=== PATIENT | female | born 1950 | race Caucasian/White ===

== ENCOUNTER 2023-04-18 10:26 | Outpatient (REF) | payer MEDICARE, SELFPAY ==
--- NOTE | ~2023-04-18 | XR_ITS ---
EXAMINATION: XR SHOULDER, LEFT CLINICAL INFORMATION: Pain. COMPARISON: None available. TECHNIQUE: AP external rotation, Grashey, scapular Y, and axillary views of the left shoulder. FINDINGS: Bony alignment and mineralization are normal. There is marked degenerative change of the right glenohumeral joint, with joint space narrowing and peripheral osteophyte formation. The acromioclavicular and coracoclavicular intervals are normal. No fracture or dislocation is seen. There is a distal acromial undersurface osteophyte, and there is cortical irregularity of the greater tuberosity of the proximal left humerus. No soft tissue calcification or foreign body is seen. There is no left pneumothorax. XR/XR shoulder LT min 2V IMPRESSION: 1. There is marked degenerative change of the left glenohumeral joint. 2. Findings are consistent with left rotator cuff impingement.
== END 2023-04-18 10:27 | disposition home or self-care (01) ==
LOC: HO.HOSX 10:26
PROVIDERS: Visit Provider Orthopaedic Surgery
DX: M25.512 Pain in left shoulder (principal)
CPT/HCPCS: 20610; 73030; 99202; J1020

== ENCOUNTER 2023-04-18 13:47 | Outpatient (AMB) | payer MEDICARE, SELFPAY ==
--- NOTE | 2023-04-18 13:49 | A.OFFVIS_ITS ---
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 Intake Note: Brinda is a 72 year old -- handed female who presents as a new patient with Left shoulder pain. Patient reports her pain has been going on for about 5 years and is a 2 on the 1-10 pain scale. She reports using meloxicam and had injections which helps. She denies injury . She has has had surgery on her left shoulder in July of 2021. She has done physical therapy exercises which aggravated her pain. She has also tried Tylenol and anti-inflammatory medicines which gave her minimal relief. She would like to hold off on surgery for as long as possible. Allergies erythromycin base Allergy (Intermediate, Verified 04/18/23 14:20) Headache Medication List - Last Reconciled 04/19/23 by Zachary Fatima MD amlodipine 10 mg PO DAILY aspirin (Adult Low Dose Aspirin) 81 mg PO DAILY ezetimibe 10 mg PO DAILY gabapentin 300 mg PO TID insulin aspart U-100 (Novolog FlexPen U-100 Insulin aspart) subcut insulin glargine (Lantus Solostar U-100 Insulin) units subcut latanoprost 0.005% drps ophthalmic (eye) levothyroxine (Synthroid) 75 mcg PO DAILY lisinopril 40 mg PO DAILY meloxicam 15 mg PO DAILY metformin 1,000 mg PO BID metoprolol succinate ER 100 mg PO DAILY [facility] Surgical History History of right knee surgery (~2018) Hx of left knee surgery (~2015) History of shoulder surgery (~07/2021) Physical Exam Vital Signs: BMI result Body Mass Index 24.3 Const Other: Well-nourished well-developed very friendly female awake alert and oriented x3 in no acute distress Extrem Other: Bilateral upper extremity examination shows good capillary refill, no skin lesions noted, normal sensation light touch Left shoulder examination shows decreased active and passive range of motion when compared to her right shoulder, crepitus with range of motion, no instability Office Procedures Joint Injection/Drain Joint Injection/Drain Primary Site: left shoulder Prep: site was prepped using aseptic technique Injected: 40 mg of, DepoMedrol and 1% plain lidocaine Procedure: The patient tolerated the procedure well Coding 35389 - Large joint Procedure code (CPT) selection complete Results Reviewed Results Reviewed: X-rays of the patient's left shoulder show severe glenohumeral joint degenerative changes, no acute bony abnormalities Assessment & Plan Assessment & Plan (1) Left shoulder pain: Code(s): M25.512 - Pain in left shoulder Plan Ms. Jeffrey presents with left shoulder pain due to glenohumeral joint arthritis. I had a lengthy discussion with the patient regarding the treatment options. She wishes to hold off on total shoulder replacement surgery for as long as possible. I agree with this plan. The risks and benefits of a left shoulder cortisone injection were discussed at length with the patient. The patient wished to proceed with the injection. She tolerated the injection well. She will continue with her home stretching program. She will follow up with me on an as-needed basis should her symptoms not plateau at an unacceptable level over the next few months. Feel free to call me at any time should questions regarding her orthopedic management arise. I spent 22 minutes in reviewing the patient's records and imaging studies, seeing the patient and documenting in the medical record. Orders: Orders XR shoulder LT min 2V 04/18/23 M25.512 - Pain in left shoulder AMB Joint Injection/Aspiration 04/18/23 M25.512 - Pain in left shoulder Coding Level of Care Code New Pt Level 2 (44014) Diagnoses Left shoulder pain M25.512 CPT Codes Coding - 30644 Large joint: 76870 - Large joint ([id number])
[2023-04-18 14:13] VITALS: BMI 24.3
== END 2023-04-18 14:58 | disposition home or self-care (01) ==
PROVIDERS: PCP Internal Medicine; Visit Provider Orthopaedic Surgery
DX: M25.512 Pain in left shoulder (principal)
CPT/HCPCS: 20610; 99204

== ENCOUNTER 2023-04-26 09:53 | Outpatient (REF) | payer MEDICARE, SELFPAY ==
--- NOTE | ~2023-04-26 | XR_ITS ---
EXAMINATION: XR HIP WITH AP PELVIS, RIGHT CLINICAL INFORMATION: Right hip pain. COMPARISON: None TECHNIQUE: AP view of the pelvis and a frog-leg lateral view of the right hip were obtained. FINDINGS: Mild osteoarthritis is present in both hips, characterized by marginal osteophytes and mild joint space narrowing. Mild osteoarthritis is also noted in the SI joints and pubic symphysis. There is enthesopathic spurring at the anterior superior iliac spines and greater trochanters bilaterally. Severe multilevel degenerative spondylosis is noted in the lumbar spine. Bones are osteopenic. Calcific atherosclerosis is present of the abdominal aorta, iliac, and femoral arteries. XR/XR hip RT min 2V IMPRESSION: 1. Mild osteoarthritis in the hips and SI joints. No acute osseous findings. 2. Marked multilevel degenerative spondylosis in the lumbar spine.
== END 2023-04-26 09:54 | disposition home or self-care (01) ==
LOC: HO.HOSX 09:53
PROVIDERS: Visit Provider Orthopaedic Surgery
DX: M25.551 Pain in right hip (principal); M54.50 Low back pain, unspecified; Z79.899 Other long term (current) drug therapy
CPT/HCPCS: 73502; 99212

== ENCOUNTER 2023-04-26 10:29 | Outpatient (AMB) | payer MEDICARE, SELFPAY ==
[2023-04-26 10:35] VITALS: BMI 24.3
--- NOTE | 2023-04-26 10:35 | MHC.OFFVIS ---
Intake Vital Signs 04/26/23 10:35 Height 5 ft 7 in Weight 155 lb BMI 24.3 Intake Visit Reasons: New prob- Right hip pain/ LVM Intake Note: Brinda is a 72 year old female who presents with Right hip pain. Patient reports her pain has been going on for about six months and is a 2 on the 1-10 scale. She reports her pain is worse when she walks or is laying down. She denies injury and surgery. She has had cortisone injections with little relief. The patient states that she recently started seeing a chiropractor again. She has gotten mild relief from the chiropractic treatments. She does walk with a cane. The patient also reports intermittent back pain which radiates into her right thigh. She did undergo low back surgery by Dr. Hernandez several years ago. Allergies erythromycin base Allergy (Intermediate, Verified 04/26/23 10:48) Headache Medication List - Last Reconciled 04/26/23 by Zachary Fatima MD amlodipine 10 mg PO DAILY aspirin (Adult Low Dose Aspirin) 81 mg PO DAILY ezetimibe 10 mg PO DAILY gabapentin 300 mg PO TID insulin aspart U-100 (Novolog FlexPen U-100 Insulin aspart) subcut insulin glargine (Lantus Solostar U-100 Insulin) units subcut latanoprost 0.005% drps ophthalmic (eye) levothyroxine (Synthroid) 75 mcg PO DAILY lisinopril 40 mg PO DAILY meloxicam 15 mg PO DAILY metformin 1,000 mg PO BID metoprolol succinate ER 100 mg PO DAILY [facility] Surgical History History of right knee surgery (~2018) Hx of left knee surgery (~2016) History of shoulder surgery (~07/2021) Physical Exam Vital Signs: BMI result Body Mass Index 24.3 Const Other: Well-nourished well-developed very friendly female awake alert and oriented x3 in no acute distress Extrem Other: Bilateral lower extremity examination shows good capillary refill, no skin lesions noted, normal sensation light touch Right hip examination shows full range of motion when compared to her left hip, minimal tenderness over her bursa, positive straight leg raise test on the right at 70 degrees Assessment & Plan Assessment & Plan (1) Right hip pain: Code(s): M25.551 - Pain in right hip (2) Low back pain: Code(s): M54.50 - Low back pain, unspecified Plan Ms. Jeffrey presents with intermittent right hip discomfort most likely due to greater trochanteric bursitis as well as low back pain which radiates into her right leg possibly due to lumbar stenosis. I had a lengthy discussion with the patient regarding the treatment options. At this point the patient's symptoms seem to be improving with the chiropractic treatments. We will hold off on a cortisone injection or an MRI of her back. Activity modifications were discussed at length with the patient. She will follow up with me on an as-needed basis should her symptoms not plateau at an unacceptable level over the next few months. Feel free to call me at any time should questions regarding her orthopedic management arise. I spent 22 minutes in reviewing the patient's records and imaging studies, seeing the patient and documenting in the medical record. Orders: Orders XR hip RT min 2V Today M25.551 - Pain in right hip Coding Level of Care Code Est Pt Level 2 (19771) Diagnoses Right hip pain M25.551 Low back pain M54.50
== END 2023-04-26 11:07 | disposition home or self-care (01) ==
PROVIDERS: PCP Internal Medicine; Visit Provider Orthopaedic Surgery
DX: M25.551 Pain in right hip (principal); M54.50 Low back pain, unspecified
CPT/HCPCS: 99213

== ENCOUNTER 2024-06-16 07:42 | Emergency (ER) | payer MEDICARE, SELFPAY ==
[2024-06-16] VITALS (10 sets, daily range): BP systolic 144–200; BP diastolic 79–100; PULSE 90–111; RESP 16–20; TEMP 36.6–37; O2SAT 94–99; BMI 23.4
--- NOTE | ~2024-06-16 | CT_ITS ---
CLINICAL HISTORY: RLQ pain CT abdomen and pelvis with contrast Comparison: CT - CT ABDOMEN PELVIS W IV CON - 06/16/24 09:30 EDT Findings: The lung bases are clear. Gallbladder is within normal limits. Bilateral adrenal thickening is present. Solid organs otherwise are within normal limits. No bowel obstruction, pneumoperitoneum, or pneumatosis. Moderate hiatal hernia. Appendix is normal. Right ovarian cyst measuring 37 mm is present. The bones are intact. IMPRESSION: 1. No acute process. 2. Right ovarian cyst, Which could indicate malignancy. Gynecologic consultation recommended. 3. Hiatal hernia. This document has been electronically signed by: Sha Cui MD on 06/16/2024 14:51:01
[2024-06-16 07:59] LABS: MANUAL DIFF FLAG NO
--- OUTSIDE RECORDS SUMMARY | 2024-06-16 07:59 | XMS_ITS | Clinical Summary ---
Author Organization [facility] Address [address] [place] [address] Care Team Providers Care Textile Machine Mechanic Name Role Phone Micah Vasques MD Primary Care Provider [phone] Allergies Active Allergy Reactions Criticality Noted Date Comments Duloxetine Nausea And Vomiting 07/17/2017 Erythromycin 11/09/2016 Lactose Intolerance (Gi) 11/09/2016 Medications Medication Sig Dispensed Refills Start Date End Date Status cyproheptadine (PERIACTIN) 4 MG tablet TK 1 T PO TID 0 09/23/2016 Active ezetimibe (ZETIA) tablet 10 mg TK 1 T PO QD 1 10/26/2016 Active B-D INS SYR ULTRAFINE .3CC/30G 30G X 1/2 0.3 ML MISC USE TID FOR DIABETES WITH INSULIN USE 11 09/26/2016 Active amLODIPine-benazep ril (LOTREL 5-20) 5-20 MG per capsule Take 1 capsule by mouth daily. 0 Active aspirin 81 MG chewable tablet Chew 81 mg by mouth daily. 0 Active LISINOPRIL PO Take by mouth. 0 Active metFORMIN (GLUMETZA) 1000 MG (MOD) 24 hr tablet Take 1,000 mg by mouth every morning with breakfast. 0 Active levothyroxine (SYNTHROID, LEVOXYL) tablet 75 mcg Take 75 mcg by mouth every morning on an empty stomach. 0 Active Insulin Zinc Human (HUMULIN L SC) Inject under the skin. 0 Active TOPROL XL 100 MG 24 hr tablet 0 11/08/2017 Active amLODIPine (NORVASC) tablet 5 mg 0 01/20/2018 Active gabapentin (NEURONTIN) 100 MG capsule 300 mg 3 (three) times a day. 0 11/21/2017 Active clindamycin (CLEOCIN) 300 MG capsule Take 2 capsules 1 hour prior to dental appointment 10 capsule 3 02/08/2018 Active DULoxetine (CYMBALTA) DR capsule 30 mg duloxetine 30 mg capsule,delayed release 0 Active ipratropium (ATROVENT) 0.03 % nasal spray ipratropium bromide 0.03 % nasal spray 0 Active ipratropium-albute rol (DUO-NEB) 0.5-2.5 mg/mL nebulizer 3 mL. 0 Active albuterol (PROAIR HFA) 108 (90 Base) MCG/ACT inhaler ProAir HFA 90 mcg/actuation aerosol inhaler 0 Active levothyroxine (SYNTHROID, LEVOXYL) tablet 75 mcg Synthroid 75 mcg tablet 0 Active HYDROcodone-acetam inophen (NORCO) 5-325 MG per tablet 1-2 tabs p.o. every 6 hours as needed for pain. May fill for lesser quantity. 40 tablet 0 03/01/2019 Active Additional Information Patient not taking.Reason: Other, Reported on 10/15/2020 HYDROcodone-acetam inophen (NORCO) 5-325 MG per tablet Take 1 to 2 tabs every 8 hours as needed for pain 45 tablet 0 04/12/2019 Active Additional Information Patient not taking.Reason: Other, Reported on 10/15/2020 hydroCHLOROthiazid e (HYDRODIURIL) tablet 25 mg 0 08/14/2020 Active tiZANidine (ZANAFLEX) 4 MG tablet 1 TABLET BY MOUTH EVERY 8 HOURS,X14 DAYS,INSTR NEEDED FOR SPASM 0 06/19/2020 Active HumaLOG KWIKPEN 100 UNIT/ML SOPN Inject 14 Units under the skin 2 (two) times a day. 0 09/11/2020 Active HumuLIN N KWIKPEN 100 UNIT/ML injection Inject 8 Units under the skin 3 (three) times a day before meals. 0 09/27/2020 Active Aspirin Buf,CaCarb-MgCarb- MgO, 81 MG TABS Take 81 mg by mouth. 0 05/20/2005 Active amoxicillin (AMOXIL) 500 MG tablet Take 4 tabs 1 hour prior to dental appointment 20 tablet 3 10/28/2021 Active lidocaine (LIDODERM) 5 % Place 1 patch onto the skin daily. Remove & Discard patch within 12 hours or as directed by MD 30 patch 0 09/11/2023 Active meloxicam (MOBIC) 15 MG tablet Take 1 tablet (15 mg total) by mouth daily as needed. for pain 90 tablet 0 11/14/2023 Active Active Problems Problem Noted Date Diagnosed Date Arthritis of left shoulder region 12/11/2018 Arthritis of left acromioclavicular joint 2018 Greater trochanteric bursitis of left hip 2018 Effusion of right knee joint 08/24/2018 Arthritis of knee, right 11/02/2017 Family History Medical History Relation Name Comments Heart disease Father Stroke Father Arthritis Mother Cancer Mother Diabetes Mother Hypertension Mother Relation Name Status Comments Father Mother Social History Tobacco Use Types Packs/Day Years Used Date Smoking Tobacco: Former Smokeless Tobacco: Never Alcohol Use Standard Drinks/Week Comments No 0 (1 standard drink = 0.6 oz pur e alcohol) Sex and Gender Information Value Date Recorded Sex Assigned at Not on file Gender Identity Not on file Sexual Orientation Not on file Job Start Date Occupation Industry Not on file Not on file Not on file Last Filed Vital Signs Vital Sign Reading Time Taken Comments Blood Pressure 154/76 09/08/2022 12:54 PM EDT Pulse 76 09/08/2022 12:54 PM EDT Temperature 36.9 ??C (98.4 ??F) 09/08/2022 12:54 PM E DT Respiratory Rate - - Oxygen Saturation 98% 09/08/2022 12:54 PM EDT Inhaled Oxygen Concentration - - Weight 70.3 kg (155 lb) 10/15/2020 8:53 AM EDT Height 172.7 cm (5' 8 ) 10/15/2020 8:53 AM EDT Body Mass Index 23.57 10/15/2020 8:53 AM EDT Plan of Treatment Health Maintenance Due Date Last Done Comments Hepatitis C Screening 1950 Depression Screening 1961 Preventative Health Evaluation 06/16/1967 Colon Cancer Screening (Colonoscopy) 1994 Breast Cancer Screening (Mammogram) 06/16/1999 Shingrix-Zoster Vaccine (1 of 2) 06/16/1999 Fall Risk Assessment 2014 Osteoporosis Screening (DEXA Scan) 2014 Pneumococcal Vaccine (3 of 3 - PPSV23 or PCV20) 01/17/2020 01/16/2015, 03/13/1995 COVID-19 Vaccine ( season) 2023 12/30/2020, 06/04/2020, 05/14/2020 Influenza Vaccine (#1) 2023 , 12/26/2017, 12/30/2016, Additional history exists RSV Adult > 60+ Yrs or (1 - 1-dose 75+ series) 2024 DTap / Tdap / Td (3 - Td or Tdap) 01/04/2028 01/03/2018, 04/06/2007 Hepatitis B Vaccines Aged Out No long er eligible based on patient's age to complete this topic RSV Ped < 20 months Aged Out No longe r eligible based on patient's age to complete this topic Care Teams Textile Machine Mechanic Relationship Specialty Start Date End Date Micah Vasques MD [address] [place] [address], [address] [place] [address] PCP - General High School Tutor 10/21/16
--- OUTSIDE RECORDS SUMMARY | 2024-06-16 07:59 | XMS_ITS | Clinical Summary ---
Author Organization [facility] Address [address] [place] [address] Care Team Providers Care Staff Rn Name Role Phone Micah Vasques MD Primary Care Provider [phone] Surgical History Surgery Date Site/Laterality Comments KNEE SURGERY PROCEDURE:KNEE SURGERY TONSILLECTOMY ADENOIDECTOMY, BILATERAL MYRINGOTOMY AND TUBES PROCEDURE:TONSILECTOMY, ADENOIDECTOMY, BILATERAL MYRINGOTOMY AND TUBES WRIST SURGERY PROCEDURE:WRIST SURGERY JOINT REPLACEMENT Bilateral PROCEDURE:JOINT REPLACEMENT;COMMENT:knee EYE SURGERY PROCEDURE:EYE SURGERY Medical History Medical History Date Comments Hypertension DX:Hypertension Arthritis DX:Arthritis Diabetes mellitus ([facility]) DX:D iabetes mellitus ([facility]) Family History Medical History Relation Name Comments Heart disease Father Stroke Father Arthritis Mother Cancer Mother Diabetes Mother Hypertension Mother Relation Name Status Comments Father Mother Social History Tobacco Use Types Packs/Day Years Used Date Smoking Tobacco: Former Smokeless Tobacco: Never Alcohol Use Standard Drinks/Week Comments No 0 (1 standard drink = 0.6 oz pur e alcohol) Comments Unknown Sex and Gender Information Value Date Recorded Sex Assigned at Not on file Legal Sex Female 1:10 PM EDT Gender Identity Not on file Sexual Orientation Not on file Obstetrics History Last Filed Vital Signs Vital Sign Reading Time Taken Comments Blood Pressure 154/76 09/08/2022 12:54 PM EDT Pulse 76 09/08/2022 12:54 PM EDT Temperature - - Respiratory Rate - - Oxygen Saturation - - Inhaled Oxygen Concentration - - Weight - - Height - - Body Mass Index - - Plan of Treatment Health Maintenance Due Date Last Done Comments Breast Cancer Screening 1950 DTaP,Tdap,and Td Vaccines (1 - Tdap) 1968 Pneumococcal Vaccine: 50+ Ye ars (1 of 1 - PCV) 06/16/1999 Zoster Vaccines (1 of 2) 06/16/1999 Colorectal Cancer Screening: Colonoscopy 11/16/2020 Depression Screening 11/16/2020 Falls Risk Assessment 11/16/2020 Hepatitis C Screening 11/16/2020 Osteoporosis Screening (Bone Density Screening) 11/16/2020 Social Influencers of Health Screening 11/16/2020 COVID-19 Vaccine (1 - 2023-2 5 season) 2023 Influenza Vaccine (#1) 2023 RSV Immunization Adult Patie nts (1 - 1-dose 75+ series) 2024 HIB Vaccines Aged Out No longer eligi ble based on patient's age to complete this topic HPV Vaccines Aged Out No longer eligi ble based on patient's age to complete this topic Hepatitis A Vaccines Aged Out No long er eligible based on patient's age to complete this topic Hepatitis B Vaccines Aged Out No long er eligible based on patient's age to complete this topic IPV Vaccines Aged Out No longer eligi ble based on patient's age to complete this topic MMR Vaccines Aged Out No longer eligi ble based on patient's age to complete this topic Meningococcal ACWY Vaccine Aged Out N o longer eligible based on patient's age to complete this topic Meningococcal B Vacine Aged Out No lo nger eligible based on patient's age to complete this topic RSV Immunization Patients Un rohini 20 months Aged Out No longer eligible b ased on patient's age to complete this topic Varicella Vaccines Aged Out No longer eligible based on patient's age to complete this topic Advance Directives Documents on File Type Date Recorded Patient Insurance Adviser Expl anation Health Care Decision (hx) 01/26/2016 AD [place] DIRECTIVE Health Care Decision (hx) 01/26/2016 AD [place] DIRECTIVE Care Teams Staff Rn Relationship Specialty Start Date End Date Micah Vasques MD [address] [place] [address] PCP - General Internal Medicine 07/15/21
--- OUTSIDE RECORDS SUMMARY | 2024-06-16 07:59 | XMS_ITS ---
Author Name [facility] Unknown Encounters Encounter Type Encounter Reason Primary Diagnosis Location Date Ambulatory [facility] 06/30/2022 Care Team Organization Name Specialty Phone Email Start Date End Da te [facility] PIERRE GRACIA Primary Care 02/10/202210/29
[2024-06-16 08:05] LABS: Basophils Percent Auto 0.4 % (0-2); Eosinophils Absolute Auto 0.1 X10*3/uL (0.0-0.4); Eosinophils Percent Auto 1.2 % (0-4); Hematocrit 37.6 % (37.0-47.0); Hemoglobin 13.7 g/dl (12.0-16.0); Imm Gran Abs Auto 0.03 X10*3/uL (0.00-0.03); Imm Gran Pct Auto 0.4 % (0.0-0.4); Lymphocytes Absolute Auto 1.7 X10*3/uL (1.2-4.9); Lymphocytes Percent Auto 19.9 % (20-40); Mean Corpuscular HGB Conc 36.4 g/dl (31.0-35.0); Mean Corpuscular Hemoglobin 31.2 pg (27.0-33.0); Mean Corpuscular Volume 85.6 fL (80.0-98.0); Mean Platelet Volume 8.9 fL (9.4-12.3); Monocytes Absolute Auto 0.8 X10*3/uL (0.1-1.2); Monocytes Percent Auto 9.3 % (2-11); Neutrophils Absolute Auto 5.9 x10*3/uL (2.0-8.3); Neutrophils Percent Auto 68.8 % (45-73); Platelet Count 436 X10*3/uL (160-400); Red Blood Count 4.39 X10*6/uL (4.20-5.50); Red Cell Distribution Width 12.9 % (11.0-16.0); White Blood Count 8.5 X10*3/uL (4.8-10.8)
[2024-06-16 08:14] LABS: Anion Gap 16 (12-20); Blood Urea Nitrogen 26 mg/dL (9-16); Calcium 9.9 mg/dL (8.4-10.2); Carbon Dioxide 25 mmol/L (22-29); Chloride 91 mmol/L (96-108); Creatinine Clr Calc Pharmacy 47.3; Estimated Glomerular Filt Rate 57; Glucose Random 199 mg/dL (60-115); Potassium 4.2 mmol/L (3.3-5.1); Sodium 128 mmol/L (135-145)
--- NOTE | 2024-06-16 09:02 | ED.NAVMDI ---
HPI - Nausea/Vomiting/Diarrhea General Chief complaint: Nausea/Vomiting/Diarrhea Stated complaint: flu like symptoms Time Seen by Provider: 06/16/24 08:49 Source: patient and family Mode of arrival: ambulatory Limitations: no limitations History of Present Illness ED Provider: DR. Ackerman HPI Narrative: 74-year-old female walked into the emergency department for evaluation of intermittent lower abdominal pain and persistent vomiting for the past 4 days, pain is intermittent feel like something twisting in her belly, persistent vomiting patient unable to keep solids or fluids, no sick contacts, no recent travel, no recent use of antibiotic, no diarrhea, passing flatus, had bowel movement 2 days ago, no history of intra-abdominal surgery. Related Data Home Medications ?Medication ?Instructions ?Recorded ?Confirmed amlodipine 10 mg tablet 10 mg PO DAILY 04/18/23 04/26/23 aspirin 81 mg tablet,delayed 81 mg PO DAILY 04/18/23 04/26/23 release (Adult Low Dose Aspirin) ezetimibe 10 mg tablet 10 mg PO DAILY 04/18/23 04/26/23 gabapentin 300 mg capsule 300 mg PO TID 04/18/23 04/26/23 insulin aspart U-100 100 unit/mL subcut 04/18/23 04/26/23 (3 mL) subcutaneous pen (Novolog FlexPen U-100 Insulin aspart) insulin glargine 100 unit/mL (3 unit subcut 04/18/23 04/26/23 mL) subcutaneous pen (Lantus Solostar U-100 Insulin) latanoprost 0.005 % eye drops drp ophthalmic (eye) 04/18/23 04/26/23 levothyroxine 75 mcg tablet 75 mcg PO DAILY 04/18/23 04/26/23 (Synthroid) lisinopril 40 mg tablet 40 mg PO DAILY 04/18/23 04/26/23 meloxicam 15 mg tablet 15 mg PO DAILY 04/18/23 04/26/23 metformin 1,000 mg tablet 1,000 mg PO BID 04/18/23 04/26/23 metoprolol succinate 100 mg 100 mg PO DAILY 04/18/23 04/26/23 tablet,extended release 24 hr Allergies Allergy/AdvReac Type Severity Reaction Status Date / Time erythromycin base Allergy Intermediate Headache Verified 06/16/24 07:48 Review of Systems Review of Systems: All other systems are reviewed and are negative Constitutional: Reports as per HPI and Reports no additional constitutional complaints Eyes: Reports as per HPI and Reports no additional eye complaints Reports system reviewed and no additional complaints, except as documented Cardiovascular: Reports as per HPI and Reports no additional cardiovascular complaints Respiratory: Reports as per HPI and Reports no additional respiratory complaints Gastrointestinal: Reports as per HPI and Reports no additional gastrointestinal complaints Genitourinary: Reports no additional female genitourinary complaints Musculoskeletal: Reports no additional musculoskeletal complaints Skin/Breast: Reports system reviewed and no additional complaints, except as docu Psychiatric: Reports no additional psychiatric complaints Endocrine: Reports no additional endocrine complaints Hematologic/Lymphatic: Reports no additional hematologic/lymphatic complaints Allergic/Immunologic: Reports no additional allergic/immunologic complaints Reports system reviewed and no additional complaints, except as documented and Reports Abnormal speech present [facility] Past Medical History Surgical History History of right knee surgery (~2018) Hx of left knee surgery (~2015) History of shoulder surgery (~07/2021) Social History Social History Advance Directives: No Advance Directives Information Provided: No Physical Exam Vital Signs: Vital Signs: Last Vital Signs Temp 98 F 06/16/24 07:47 Pulse 111 H 06/16/24 14:01 Resp 20 06/16/24 14:02 BP 164/79 H 06/16/24 14:01 Pulse Ox 96 06/16/24 14:01 O2 Del Method Room Air 06/16/24 14:01 BMI result Body Mass Index 23.4 Vital signs have been reviewed and appear to be correct. Blood pressure elevated. Heart rate elevated. Respiratory rate normal. Temperature normal. Oxygen saturation normal. Appearance: Alert. Oriented X3. No acute distress. Head: Normal external exam. Normocephalic. Atraumatic. No Mead signs noted. No raccoon eyes noted Eyes: PERRLA. EOMI. Conjunctiva and sclera normal. Eyelids normal. ENT: TM's Normal. Pharynx normal. Uvula midline. Moist mucous membranes. No trismus noted. No drooling noted. No muffled voice noted. Neck: Normal inspection. Neck supple. FROM. No adenopathy. Thyroid Normal. No meningeal signs. No neck mass noted. CVS: Normal heart rate and rhythm. Heart sound normal. No murmurs noted. Pulses normal throughout. Respiratory: No respiratory distress. Painless inspiration. Breath sounds normal. No wheezes/rales/rhonchi noted. Chest nontender. No accessory muscle usage noted or decreased air movement noted. Abdomen: Soft, right lower quadrant tenderness, no rebound tenderness, no guarding. Bowel sounds normal in all 4 quadrants. No distention noted. No organomegaly noted. No visible injury noted. Back: No CVA tenderness. Full range of motion noted. Skin: Skin warm and dry. Normal skin color. Normal skin turgor. No rashes/lesions/lacerations noted. Extremities: No lower extremity edema. Extremities exhibit normal range of motion. Extremities nontender. Neuro: Oriented X 3. Cranial nerve exam: II-XII are grossly intact No motor deficit. No sensory deficit. Reflexes normal. Course Reevaluation(s) Reevaluation #1: Feels better after IV hydration and IV morphine with Toradol, able to tolerate p.o. intake now, labs are unremarkable, CT abdomen pelvis is consistent with large right ovarian cyst and normal appendix. Repeat labs shows improvement of hyponatremia after a L of normal saline. Able to tolerate p.o. intake now. Instructed to follow-up with METAL BONDING CRIB ATTENDANT. Time: 15:55 Medications Administered Discontinued Medications Generic Name Dose Route Start Last Admin Trade Name Freq PRN Reason Stop Dose Admin Sodium Chloride 1,000 mls @ 999 mls/hr 06/16/24 08:58 06/16/24 11:00 Ns IV 06/16/24 09:58 Infused .Q1H1M ONE Infusion Iohexol 100 ml 06/16/24 09:39 06/16/24 09:39 Iohexol 350 Mg/Ml 100 Ml Infus..Btl IV 06/16/24 09:40 85 ml ONCE ONE Administration Ketorolac Tromethamine 15 mg 06/16/24 08:58 06/16/24 09:55 Ketorolac Tromethamine 15 Mg/Ml Vial IVPUSH 06/16/24 08:59 15 mg ONCE ONE Administration Morphine Sulfate 0.5 mg 06/16/24 08:58 06/16/24 09:55 Morphine Sulfate 2 Mg/Ml Cartridge IVPUSH 06/16/24 08:59 0.5 mg ONCE ONE Administration Protocol Morphine Sulfate 1 mg 04/06/25 13:31 06/16/24 14:02 Morphine Sulfate 2 Mg/Ml Cartridge IVPUSH 06/16/24 13:32 1 mg ONCE ONE Administration Protocol Ondansetron HCl 4 mg 06/16/24 08:58 06/16/24 09:55 Ondansetron Hcl 4 Mg/2 Ml Vial IVPUSH 06/16/24 08:59 4 mg ONCE ONE Administration Medical Decision Making Differential Diagnosis Differential Diagnoses: The differential diagnosis associated with the presentation includes (Acute appendicitis, acute ovarian cyst, colitis, diverticulitis, pancreatitis, gallbladder disease gastritis, gastroenteritis, severe anemia, electrolyte derangement.) Admission/Observation Consideration of admission/observation: Escalation of care including admission/observation considered Lab Data MDM Lab Attestation statement: I reviewed the patient's lab results. 06/16/24 07:54 06/16/24 15:27 Labs: Lab Results 06/16/24 06/16/24 06/16/24 Range/Units 07:54 09:15 10:10 WBC 8.5 (4.8-10.8) X10*3/uL RBC 4.39 (4.20-5.50) X10*6/uL Hgb 13.7 (12.0-16.0) g/dl Hct 37.6 (37.0-47.0) % MCV 85.6 (80.0-98.0) fL MCH 31.2 (27.0-33.0) pg MCHC 36.4 H (31.0-35.0) g/dl RDW 12.9 (11.0-16.0) % Plt Count 436 H (160-400) X10*3/uL MPV 8.9 L (9.4-12.3) fL Immature Gran % (Auto) 0.4 (0.0-0.4) % Neut % (Auto) 68.8 (45-73) % Lymph % (Auto) 19.9 L (20-40) % Tama % (Auto) 9.3 (2-11) % Eos % (Auto) 1.2 (0-4) % Baso % (Auto) 0.4 (0-2) % Lymph # (Auto) 1.7 (1.2-4.9) X10*3/uL Tama # (Auto) 0.8 (0.1-1.2) X10*3/uL Eos # (Auto) 0.1 (0.0-0.4) X10*3/uL Baso # (Auto) 0.0 (0.0-0.2) X10*3/uL Abs Immat Gran (auto) 0.03 (0.00-0.03) X10*3/uL Absolute Neuts (auto) 5.9 (2.0-8.3) x10*3/uL Absolute Nucleated RBC 0.000 (0.0-0.012) X10*3/uL Nucleated RBC % (auto) 0.0 (0.0-0.2) /100WBC Sodium 128 L (135-145) mmol/L Potassium 4.2 (3.3-5.1) mmol/L Chloride 91 L (96-108) mmol/L Carbon Dioxide 25 (22-29) mmol/L Anion Gap 16 (12-20) BUN 26 H (9-16) mg/dL Creatinine 0.96 (0.5-1.4) mg/dL Estim Creat Clear Calc 47.3 Estimated GFR 57 Random Glucose 199 H (60-115) mg/dL Calcium 9.9 (8.4-10.2) mg/dL Total Bilirubin 0.6 (0.0-1.0) mg/dL Direct Bilirubin 0.2 (0.0-0.5) mg/dL AST 22 (5-31) U/L ALT 14 (0-31) U/L Alkaline Phosphatase 99 (39-117) U/L Total Protein 7.6 (6.5-8.0) g/dL Albumin 4.6 (3.5-5.0) g/dL Lipase 23 (8-78) U/L Urine Color Yellow Urine Appearance Clear Urine pH 5.5 (5.0-9.0) Ur Specific [place] >= 1.030 H (1.005-1.025) Urine Protein 100 (2+) H (Neg-Trace) mg/dL Urine Glucose (UA) Negative (Negative) mg/dL Urine Ketones 15 (Negative) mg/dL Urine Blood Negative (Negative) Urine Nitrite Negative (Negative) Ur Leukocyte Esterase Negative (Negative) Urine RBC 0-2 (0-2) /HPF Urine WBC 0-5 (0-5) /HPF Ur Squamous Epith Cells 0-2 (0-2) /HPF Urine Bacteria None Seen (None Seen) Hyaline Casts 0-2 (0-2) /LPF Influenza Type A (PCR) NEGATIVE (Negative) Influenza Type B (PCR) NEGATIVE (Negative) RSV RNA Qual (PCR) NEGATIVE (Negative) SARS-CoV-2 RNA (RT-PCR) NEGATIVE (Negative) 06/16/24 Range/Units 15:27 WBC (4.8-10.8) X10*3/uL RBC (4.20-5.50) X10*6/uL Hgb (12.0-16.0) g/dl Hct (37.0-47.0) % MCV (80.0-98.0) fL MCH (27.0-33.0) pg MCHC (31.0-35.0) g/dl RDW (11.0-16.0) % Plt Count (160-400) X10*3/uL MPV (9.4-12.3) fL Immature Gran % (Auto) (0.0-0.4) % Neut % (Auto) (45-73) % Lymph % (Auto) (20-40) % Tama % (Auto) (2-11) % Eos % (Auto) (0-4) % Baso % (Auto) (0-2) % Lymph # (Auto) (1.2-4.9) X10*3/uL [place]ama # (Auto) (0.1-1.2) X10*3/uL Eos # (Auto) (0.0-0.4) X10*3/uL Baso # (Auto) (0.0-0.2) X10*3/uL Abs Immat Gran (auto) (0.00-0.03) X10*3/uL Absolute Neuts (auto) (2.0-8.3) x10*3/uL Absolute Nucleated RBC (0.0-0.012) X10*3/uL Nucleated RBC % (auto) (0.0-0.2) /100WBC Sodium 133 L (135-145) mmol/L Potassium 4.0 (3.3-5.1) mmol/L Chloride 94 L (96-108) mmol/L Carbon Dioxide 26 (22-29) mmol/L Anion Gap 17 (12-20) BUN 23 H (9-16) mg/dL Creatinine 0.90 (0.5-1.4) mg/dL Estim Creat Clear Calc 50.5 Estimated GFR > 60 Random Glucose 181 H (60-115) mg/dL Calcium 9.3 D (8.4-10.2) mg/dL Total Bilirubin (0.0-1.0) mg/dL Direct Bilirubin (0.0-0.5) mg/dL AST (5-31) U/L ALT (0-31) U/L Alkaline Phosphatase (39-117) U/L Total Protein (6.5-8.0) g/dL Albumin (3.5-5.0) g/dL Lipase (8-78) U/L Urine Color Urine Appearance Urine pH (5.0-9.0) Ur Specific [place] (1.005-1.025) Urine Protein (Neg-Trace) mg/dL Urine Glucose (UA) (Negative) mg/dL Urine Ketones (Negative) mg/dL Urine Blood (Negative) Urine Nitrite (Negative) Ur Leukocyte Esterase (Negative) Urine RBC (0-2) /HPF Urine WBC (0-5) /HPF Ur Squamous Epith Cells (0-2) /HPF Urine Bacteria (None Seen) Hyaline Casts (0-2) /LPF Influenza Type A (PCR) (Negative) Influenza Type B (PCR) (Negative) RSV RNA Qual (PCR) (Negative) SARS-CoV-2 RNA (RT-PCR) (Negative) Discharge Plan Discharge Clinical Impression: Persistent vomiting, Acute hyponatremia, Cyst, ovarian Patient Disposition: Home, Self-Care Instructions: Dehydration (ED), Hyponatremia (ED) Additional Instructions: Follow-up with your senior interactive producer as discussed before. Prescriptions: No Action amlodipine 10 mg tablet 10 mg PO DAILY latanoprost 0.005 % drops ophthalmic (eye) meloxicam 15 mg tablet 15 mg PO DAILY insulin aspart U-100 [Novolog FlexPen U-100 Insulin] 100 unit/mL (3 mL) insulin pen subcut levothyroxine [Synthroid] 75 mcg tablet 75 mcg PO DAILY insulin glargine [Lantus Solostar U-100 Insulin] 100 unit/mL (3 mL) insulin pen subcut ezetimibe 10 mg tablet 10 mg PO DAILY metoprolol succinate 100 mg tablet extended release 24 hr 100 mg PO DAILY gabapentin 300 mg capsule 300 mg PO TID lisinopril 40 mg tablet 40 mg PO DAILY metformin 1,000 mg tablet 1,000 mg PO BID aspirin [Adult Low Dose Aspirin] 81 mg tablet,delayed release (DR/EC) 81 mg PO DAILY Referrals: Barby Willis MD [Primary Care Provider] - Print Language: Ethiopian
[2024-06-16 09:19] LABS: Alanine Aminotransferase 14 U/L (0-31); Albumin Level 4.6 g/dL (3.5-5.0); Alkaline Phosphatase 99 U/L (39-117); Aspartate Amino Transferase 22 U/L (5-31); Bilirubin Direct 0.2 mg/dL (0.0-0.5); Bilirubin Total 0.6 mg/dL (0.0-1.0); Lipase 23 U/L (8-78); Total Protein 7.6 g/dL (6.5-8.0)
[2024-06-16] MEDS: iohexoL 350 MG/ML 100 ML INFUS..BTL IV (09:39)
[2024-06-16] MEDS: Morphine Sulfate 2 MG/ML CARTRIDGE 0.5 MG IVPUSH (09:55)
[2024-06-16] MEDS: Ketorolac Tromethamine 15 MG/ML VIAL IVPUSH (09:55)
[2024-06-16] MEDS: ondansetron HCL 4 MG/2 ML VIAL IVPUSH (09:55)
[2024-06-16] MEDS: 0.9 % Sodium Chloride 1,000 ML 999 ML IV (09:56)
[2024-06-16 10:17] LABS: Appearance Urine Clear; Color Urine Yellow; Glucose Urine UA Negative (Negative); Leukocyte Esterase Urine Negative (Negative); Nitrite Urine Negative (Negative); PH 5.5 (5.0-9.0); Specific Gravity - Urine >= 1.030 (1.005-1.025); UMIC TRIGGER UACC YES; Urine Blood Negative (Negative); Urine Ketones 15 mg/dL (Negative); Urine Protein 100 (2+) mg/dL (Neg-Trace)
[2024-06-16 10:19] LABS: Influenza A PCR NEGATIVE (Negative); Influenza B PCR NEGATIVE (Negative); Resp Syncy Virus RNA Qual PCR NEGATIVE (Negative); SARS COV2 PCR INHOUSE NEGATIVE (Negative)
[2024-06-16 10:19] LABS: Bacteria Urine None Seen (None Seen); Hyaline Casts Urine 0-2 /LPF (0-2); RBC Urine 0-2 /HPF (0-2); Squamous Epithelial Cell Urine 0-2 /HPF (0-2); WBC Urine 0-5 /HPF (0-5)
[2024-06-16] MEDS: Morphine Sulfate 2 MG/ML CARTRIDGE 1 MG IVPUSH (14:02)
[2024-06-16 15:53] LABS: Anion Gap 17 (12-20); Blood Urea Nitrogen 23 mg/dL (9-16); Calcium 9.3 mg/dL (8.4-10.2); Carbon Dioxide 26 mmol/L (22-29); Chloride 94 mmol/L (96-108); Creatinine Clr Calc Pharmacy 50.5; Estimated Glomerular Filt Rate > 60; Glucose Random 181 mg/dL (60-115); Sodium 133 mmol/L (135-145)
== END 2024-06-16 16:03 | disposition home or self-care (01) ==
PROVIDERS: Emergency Provider Emergency Medicine; PCP Internal Medicine
DX: R11.2 Nausea with vomiting, unspecified (principal); E87.1 Hypo-osmolality and hyponatremia; N83.201 Unspecified ovarian cyst, right side; R10.30 Lower abdominal pain, unspecified; Z03.818 Encounter for observation for suspected exposure to other biological agents ruled out
CPT/HCPCS: 0241U; 36415; 74177; 80048; 80076; 81001; 83690; 85025; 96361; 96374; 96375; 96376; 99284; J1885; J2270; J2405; Q9967

== ENCOUNTER → 2024-06-16 08:58 | Outpatient (BNV) | payer MEDICARE, SELFPAY | PROVIDERS: Emergency Provider Emergency Medicine; PCP Internal Medicine; Visit Provider Radiology Diagnostic Radiology | DX: N83.201 Unspecified ovarian cyst, right side (principal) | CPT/HCPCS: 74177 ==

== ENCOUNTER 2024-10-02 09:29 | Outpatient (AMB) | payer MEDICARE, SELFPAY ==
--- NOTE | 2024-10-02 09:30 | A.OFFVIS_ITS ---
Vital Signs 10/02/24 09:33 Height 5 ft 5 in Weight 145 lb BMI 24.1 Intake Visit Reasons: Left shoulder pain Intake Note: Brinda is a 74 year old female who presents with complaints of left shoulder pain. She describes her pain as sharp in nature. She has tried Tylenol which gives her only mild relief. She has also done [id number] exercises which aggravated her pain. She has had cortisone injections in the past which gave her fairly good relief. She wishes to hold off on surgery if at all possible. Allergies erythromycin base Allergy (Intermediate, Verified 10/02/24 09:32) Headache Medication List - Last Reviewed 10/02/24 by Yin Jade amlodipine 10 mg PO DAILY aspirin (Adult Low Dose Aspirin) 81 mg PO DAILY ezetimibe 10 mg PO DAILY gabapentin 300 mg PO TID insulin aspart U-100 (Novolog FlexPen U-100 Insulin aspart) subcut insulin glargine (Lantus Solostar U-100 Insulin) units subcut latanoprost 0.005% drps ophthalmic (eye) levothyroxine (Synthroid) 75 mcg PO DAILY lisinopril 40 mg PO DAILY meloxicam 15 mg PO DAILY metformin 1,000 mg PO BID metoprolol succinate ER 100 mg PO DAILY [facility] Surgical History History of right knee surgery (~2019) Hx of left knee surgery (~2015) History of shoulder surgery (~07/2021) Physical Exam Const Other: Well-nourished well-developed very friendly female awake alert and oriented x3 in no acute distress Extrem Other: Left shoulder examination shows slightly decreased range of motion when compared to her right shoulder, mild crepitus with range of motion, pain with range of motion, no instability Office Procedures AMB Joint Injection/Aspiration Joint Injection/Aspiration Primary Site: left shoulder Prep: site was prepped using aseptic technique Injected: 40 mg of, DepoMedrol and 1% plain lidocaine Procedure: The patient tolerated the procedure well Coding 62402 - Large joint Procedure code (CPT) selection complete Assessment & Plan Assessment & Plan (1) Arthritis of left shoulder region: Code(s): M19.012 - Primary osteoarthritis, left shoulder Category: Medical (2) Left shoulder pain: Code(s): M25.512 - Pain in left shoulder Category: Medical Plan Ms. Jeffrey presents with left shoulder pain due to glenohumeral joint arthritis. The risks and benefits of a left shoulder cortisone injection were discussed at length with the patient. The patient wished to proceed. She tolerated the injection well. She will continue with her home stretching program. She will contact me prior to her follow-up appointment in 3 months should any questions or concerns arise. Feel free to call me at any time should questions regarding her orthopedic management arise. I spent 22 minutes in reviewing the patient's records and imaging studies, seeing the patient and documenting in the medical record. Orders: Orders AMB Joint Injection/Aspiration Today M19.012 - Primary osteoarthritis, left shoulder Coding Level of Care Code Est Pt Level 3 (53634) Complex EM visit Add On G2211 Diagnoses Arthritis of left shoulder region M19.012 Left shoulder pain M25.512 CPT Codes Coding - 39598 Large joint: 94228 - Large joint ([id number])
[2024-10-02 09:33] VITALS: BMI 24.1
--- OUTSIDE RECORDS SUMMARY | 2024-10-02 10:00 | XMS_ITS | Clinical Summary ---
Author Organization [facility] [place] Address [address] [place] [address] Care Team Providers Care Shipping Coordinator Name Role Phone Micah Vasques MD Primary Care Provider [phone] Surgical History Surgery Date Site/Laterality Comments KNEE SURGERY PROCEDURE:KNEE SURGERY TONSILLECTOMY ADENOIDECTOMY, BILATERAL MYRINGOTOMY AND TUBES PROCEDURE:TONSILECTOMY, ADENOIDECTOMY, BILATERAL MYRINGOTOMY AND TUBES WRIST SURGERY PROCEDURE:WRIST SURGERY JOINT REPLACEMENT Bilateral PROCEDURE:JOINT REPLACEMENT;COMMENT:knee EYE SURGERY PROCEDURE:EYE SURGERY Medical History Medical History Date Comments Hypertension DX:Hypertension Arthritis DX:Arthritis Diabetes mellitus ([facility] V24, [facility] V28) DX:Diabetes mellitus ([facility]) Family History Medical History Relation Name Comments [...] Health Maintenance Due Date Last Done Comments Diabetes: Annual GFR (Glomerular Filtration Rate) 1949 Diabetes: Annual Foot Exam 06/16/1959 Diabetes: Annual Retina Eye Exam 06/16/1959 Zoster Vaccines (1 of 2) 06/16/1999 Pneumococcal Vaccine: 50+ Years (3 of 3 - PCV20 or PCV21) 01/17/2020 01/16/2015, 03/13/1995 Cholesterol Screening (Lipid Panel) 11/16/2020 Colorectal Cancer Screening: Colonoscopy 11/16/2020 Falls Risk Assessment 11/16/2020 Hepatitis C Screening 11/16/2020 Osteoporosis Screening (Bone Density Screening) 11/16/2020 Social Influencers of Health Screening 11/16/2020 COVID-19 Vaccine ( season) 2023 12/30/2020, 06/04/2020, 05/14/2020 Depression Screening 03/13/2024 Diabetes: Annual Urine Albumin-Creatinine Ratio (uACR) 07/18/2024 Diabetes: Blood Sugar Control Test (HGBA1C) 07/18/2024 Hypertension/CHF/CAD Annual BMP Blood Test 07/18/2024 Influenza Vaccine (#1) 2024 , 12/23/2021, 12/30/2020, Additional history exists DTaP,Tdap,and Td Vaccines (3 - Td or Tdap) 01/04/2028 01/03/2018, 04/06/2007 RSV Immunization Adult Patients Completed 04/28/2023 HIB Vaccines Aged Out No longer eligi [...] age to complete this topic Meningococcal B Vaccine Aged Out No l onger eligible based on patient's age to complete this topic RSV Immunization Patients Under 20 months Aged Out No longer eligible based on patient's age to complete this topic Varicella Vaccines Aged Out No longer eligible based on patient's age to complete this topic Advance Directives Documents on File Type Date Recorded Patient Office Copy Selector Expl anation Health Care Decision (hx) 01/26/2016 AD LA DIRECTIVE Health Care Decision (hx) 01/26/2016 AD LA DIRECTIVE Care Teams Shipping Coordinator Relationship Specialty Start Date End Date Micah Vasques MD [address] [place] [id number] PCP - General Internal Medicine 07/15/21
--- OUTSIDE RECORDS SUMMARY | 2024-10-02 10:00 | XMS_ITS ---
Author Name [facility] Organization Unknown Encounters Encounter Type Encounter Reason Primary Diagnosis Location Date Ambulatory [facility] 12/22/2023 Ambulatory [facility] [place] [facility] 06/30/2022 Care Team Organization Name Specialty Phone Email Start Date End Da te [facility] 07/06/2024 [facility] PIERRE RGACIA Primary Care 02/10/202210/29
--- OUTSIDE RECORDS SUMMARY | 2024-10-02 10:00 | XMS_ITS | Clinical Summary ---
Author Organization [facility] Address [address] [place] [address] Care Team Providers Care Mall Plant Caretaker Name Role Phone Micah Vasques MD Primary Care Provider [phone] Allergies Active Allergy Reactions Criticality Noted Date [...] 76 09/08/2022 12:54 PM EDT Temperature 36.9 C (98.4 F) 09/08/2022 12:54 PM EDT Respiratory Rate - - Oxygen Saturation 98% [...] Evaluation 06/16/1967 Colon Cancer Screening (Colonoscopy) 1994 Shingrix-Zoster Vaccine (1 of 2) 06/16/1999 Fall Risk Assessment 2014 Osteoporosis Screening (DEXA Scan) 2014 Pneumococcal Vaccine (3 of 3 - PPSV23 or PCV20) 01/17/2020 01/16/2015, 03/13/1995 COVID-19 Vaccine ( - season) 2023 12/30/2020, 06/04/2020, 05/14/2020 RSV Adult > 60+ Yrs or (1 - 1-dose 75+ series) 2024 Influenza Vaccine (#1) 2024 , 12/26/2017, 12/30/2016, Additional history exists DTap / Tdap / Td (3 - Td or Tdap) 01/04/2028 01/03/2018, 04/06/2007 Hepatitis B Vaccines Aged Out No long er eligible based on patient's age to complete this topic RSV Ped < 20 months Aged Out No longe r eligible based on patient's age to complete this topic Care Teams Mall Plant Caretaker Relationship Specialty Start Date End Date Micah Vasques MD [address] [place] [address], [facility] [address] [place] [address] PCP - General Plastic Boat Buffer 10/21/16
== END 2024-10-02 09:45 | disposition home or self-care (01) ==
LOC: HO.HOS 09:29
PROVIDERS: PCP Internal Medicine; Visit Provider Orthopaedic Surgery
DX: M19.012 Primary osteoarthritis, left shoulder (principal); M25.512 Pain in left shoulder
CPT/HCPCS: 20610; 99213

== ENCOUNTER → 2024-10-02 09:29 | Outpatient (BNVA) | payer MEDICARE, SELFPAY | PROVIDERS: PCP Internal Medicine; Visit Provider Orthopaedic Surgery | DX: M19.012 Primary osteoarthritis, left shoulder (principal); M25.512 Pain in left shoulder; Z79.52 Long term (current) use of systemic steroids; Z79.82 Long term (current) use of aspirin; Z79.890 Hormone replacement therapy; Z79.899 Other long term (current) drug therapy | CPT/HCPCS: 20610; 99212; J1010; J2003 ==

== ENCOUNTER 2025-01-02 09:33 | Outpatient (AMB) | payer MEDICARE, SELFPAY ==
--- NOTE | 2025-01-02 09:37 | A.OFFVIS_ITS ---
Intake Visit Reasons: left shoulder pain Intake Note: Brinda is a 74 year old female who presents with complaints of progressively worsening left shoulder pain and stiffness. She describes her pain as sharp and severe in nature. Her symptoms have gotten worse over the last few years in spite of continued non operative treatments. She has had multiple injections. The most recent injection gave her no relief. She has also tried Tylenol and anti-inflammatory medicines which gave her minimal relief. At this point her left shoulder pain and stiffness are interfering with her activities of daily living and her ability to sleep well through the night. Allergies erythromycin base Allergy (Intermediate, Verified 10/02/24 09:32) Headache Medication List - Last Reconciled 01/02/25 by Zachary Fatima MD amlodipine 10 mg PO DAILY aspirin (Adult Low Dose Aspirin) 81 mg PO DAILY ezetimibe 10 mg PO DAILY gabapentin 300 mg PO TID insulin aspart U-100 (Novolog FlexPen U-100 Insulin aspart) subcut insulin glargine (Lantus Solostar U-100 Insulin) units subcut latanoprost 0.005% drps ophthalmic (eye) levothyroxine (Synthroid) 75 mcg PO DAILY lisinopril 40 mg PO DAILY meloxicam 15 mg PO DAILY metformin 1,000 mg PO BID metoprolol succinate ER 100 mg PO DAILY [facility] Surgical History History of right knee surgery (~2018) Hx of left knee surgery (~2016) History of shoulder surgery (~07/2021) Physical Exam Extrem Other: Left shoulder examination shows decreased active and passive range of motion when compared to her right shoulder, crepitus with range of motion, pain with range of motion, no instability Results Reviewed Results Reviewed: X-rays of the patient's left shoulder taken previously show end-stage glenohumeral joint degenerative changes with joint space narrowing, subchondral sclerosis, osteophyte formation, no acute bony abnormalities Assessment & Plan Assessment & Plan (1) Arthritis of left shoulder region: Code(s): M19.012 - Primary osteoarthritis, left shoulder Category: Medical Plan Ms. Jeffrey presents with progressively worsening left shoulder pain and stiffness due to end-stage glenohumeral joint arthritis. I had a lengthy discussion with the patient regarding the treatment options. At this point she appears to be failing continued non operative treatments. She is interested in proceeding with reverse total shoulder replacement surgery. Thus, I will arrange for her to have a consultation with my partner, Dr. Campos, who pe rforms this type of surgery. She will follow up as instructed. Feel free to call me at any time should questions regarding her orthopedic management arise. I spent 22 minutes in reviewing the patient's records and imaging studies, seeing the patient and documenting in the medical record. Coding Level of Care Code Est Pt Level 3 (26071) Complex EM visit Add On G2211 Diagnoses Arthritis of left shoulder region M19.012
--- OUTSIDE RECORDS SUMMARY | 2025-01-02 10:53 | XMS_ITS | Clinical Summary ---
Author Organization [facility] Address [address] [place] [address] Care Team Providers Care Cdl Dedicated Truck Driver Name Role Phone Micah Vasques MD Primary Care Provider [phone] Allergies Active Allergy Reactions Criticality Noted Date [...] - PPSV23 or PCV20) 01/17/2020 01/16/2015, 03/13/1995 RSV Adult > 60+ Yrs or (1 - 1-dose 75+ series) 2024 COVID-19 Vaccine ( season) 2024 12/30/2020, 06/04/2020, 05/14/2020 Influenza Vaccine (#1) 2024 , 12/26/2017, 12/30/2016, Additional history exists DTap / Tdap / Td (3 - Td or Tdap) 01/04/2028 01/03/2018, 04/06/2007 Hepatitis B Vaccines Aged Out No long er eligible based on patient's age to complete this topic RSV Ped < 20 months Aged Out No longe r eligible based on patient's age to complete this topic Care Teams Cdl Dedicated Truck Driver Relationship Specialty Start Date End Date Micah Vasques MD [address] [place] [address], [facility] [address] [place] [address] PCP - General Wind Farm Engineer 10/21/16
--- OUTSIDE RECORDS SUMMARY | 2025-01-02 10:53 | XMS_ITS | Clinical Summary ---
Author Organization [facility] Address [address] [place] [address] Care Team Providers Care Bioanalyst Name Role Phone Micah Vasques MD Primary Care Provider [phone] Surgical History Surgery Date Site/Laterality Comments KNEE SURGERY PROCEDURE:KNEE SURGERY TONSILLECTOMY ADENOIDECTOMY, BILATERAL MYRINGOTOMY AND TUBES PROCEDURE:TONSILECTOMY, ADENOIDECTOMY, BILATERAL MYRINGOTOMY AND TUBES WRIST SURGERY PROCEDURE:WRIST SURGERY JOINT REPLACEMENT Bilateral PROCEDURE:JOINT REPLACEMENT;COMMENT:knee EYE SURGERY PROCEDURE:EYE SURGERY Medical History Medical History Date Comments Hypertension DX:Hypertension Arthritis DX:Arthritis Diabetes mellitus ([facility]/HCC V24, CMS/HCC V28) DX:Diabetes mellitus ([facility]) Family History Medical History Relation Name Comments [...] Health Maintenance Due Date Last Done Comments Colorectal Cancer Screening: Colonoscopy 1950 Diabetes: Annual GFR (Glomerular Filtration Rate) 1949 Diabetes: Annual Foot Exam 06/16/1959 Diabetes: Annual Retina Eye Exam 06/16/1959 Zoster Vaccines (1 of 2) 06/16/1999 Pneumococcal Vaccine: 50+ Years (3 of 3 - PCV20 or PCV21) 01/17/2020 01/16/2015, 03/13/1995 Cholesterol Screening (Lipid Panel) 11/16/2020 Falls Risk Assessment 11/16/2020 Hepatitis C Screening 11/16/2020 Osteoporosis Screening (Bone Density Screening) 11/16/2020 Social Influencers of Health Screening 11/16/2020 Depression Screening 03/13/2024 Diabetes: Annual Urine Albumin-Creatinine Ratio (uACR) 07/18/2024 Diabetes: Blood Sugar Control Test (HGBA1C) 07/18/2024 Hypertension/CHF/CAD Annual BMP Blood Test 07/18/2024 COVID-19 Vaccine ( season) 2024 12/30/2020, 06/04/2020, 05/14/2020 Influenza Vaccine (#1) 2024 , 12/23/2021, 12/30/2020, [...] Documents on File Type Date Recorded Patient Gps Navigation Installer Expl anation Health Care Decision (hx) 01/26/2016 AD LA DIRECTIVE Health Care Decision (hx) 01/26/2016 AD LA DIRECTIVE Care Teams Bioanalyst Relationship Specialty Start Date End Date Micah Vasques MD [address] [place] [id number] PCP - General Internal Medicine 07/15/21
== END 2025-01-02 09:52 | disposition home or self-care (01) ==
PROVIDERS: PCP Internal Medicine; Visit Provider Orthopaedic Surgery
DX: M19.012 Primary osteoarthritis, left shoulder (principal)
CPT/HCPCS: 99213; G2211

== ENCOUNTER → 2025-01-02 09:33 | Outpatient (BNVA) | payer MEDICARE, SELFPAY | PROVIDERS: PCP Internal Medicine; Visit Provider Orthopaedic Surgery | DX: M25.512 Pain in left shoulder (principal); M19.012 Primary osteoarthritis, left shoulder | CPT/HCPCS: 99212 ==

== ENCOUNTER 2025-01-16 08:44 | Outpatient (AMB) | payer MEDICARE, SELFPAY ==
--- NOTE | 2025-01-16 08:57 | MHC.OFFVIS ---
Vital Signs 01/16/25 09:00 Height 5 ft 5 in Weight 145 lb BMI 24.1 Intake Visit Reasons: OV - Left Shoulder OA - Discuss TSA per [facility] Intake Note: Brinda is a 74 year old female who presents today for a follow up of her Left Shoulder OA. She was last seen with Dr. Fatima where she has previously had an injection which gave mild relief, he has referred her to discuss TSA Diabetic - Metformin Baby Aspirin Allergies erythromycin base Allergy (Intermediate, Verified 01/16/25 09:01) Headache HPI HPI OV - Left Shoulder OA - Discuss TSA per [facility]: Details: This is a very pleasant 74 yo F who presents today with left shoulder pain. She has been treated by Dr Fatima for the last 2 years with injections which had been helpful but no longer are. SHe has been having pain for at least 7 years and feels the discomfort has become unbearable. She describes pain with almost all motions and cannot engage in meaningful daily activities without pain. She feels the injections are no longer helping. [facility] Surgical History History of right knee surgery (~2018) Hx of left knee surgery (~2016) History of shoulder surgery (~07/2021) Physical Exam Exam Exam: Pleasant F NAD painful passive ER to 30/ active abd to 70 with pain. Pain and crepitus with motion but RTC grossly intact. Vital Signs: BMI result Body Mass Index 24.1 Results Reviewed Results Reviewed: I personally reviewed relevant radiographs. There is total loss of joint space c/w severe OA L GH joint Assessment & Plan Assessment & Plan (1) Arthritis of left shoulder region: Code(s): M19.012 - Primary osteoarthritis, left shoulder Category: Medical Plan: This is a 74 yo F with severe OA of the left shoulder. She has clearly exhausted conservative measures including injections, PT and non narcotic medication. She is unable to use her left arm in a meaningful way and suffers from daily pain,. She has crepitus and pain with active and passive motion. She feels the quality of her life is diminished and cannot engage in daily activities without pain. I recommend left shoulder arthroplasty. I explained the surgery and the alternatives including injections, nerve blocks, activity modification and medication. I discussed the risks of surgery including, but not limited to, the risk of persistent pain, incomplete symptom resolution, infection, dislocation, fracture, aseptic loosening and the need for further surgery, damage to nerves and blood vessels that could require additional treatment, as well as potential medical complications such as blood clots, pulmonary embolism, organ failure and cardiac complications. I ordered an MRI to assess the integrity of her cuff and a CT scan for pre operative planning. I answered all her questions to the best of my abilities. Her DM is well controlled. The only additional concern is that she feels occasionally unstable when she stands. This has been ongoing and she has not fallen but notes that , when she stands quickly she takes a second to get her balance. I discussed the risk of falling but I do not think she is unstable and I do not think the risk is modifiable. I think it would be reasonable to have her evaluated by OT for home modifications to make her home as safe as possible. She understands this and would like to proceed forward with surgical planning and clearance. I introduced her to our NN and we will proceed forward. Orders: Orders MR shoulder LT wo con 01/17/25 M19.012 - Primary osteoarthritis, left shoulder CT shoulder LT wo IV con 01/17/25 M19.012 - Primary osteoarthritis, left shoulder Coding Level of Care Code Est Pt Level 4 (70388) Diagnoses Arthritis of left shoulder region M19.012
[2025-01-16 09:00] VITALS: BMI 24.1
--- OUTSIDE RECORDS SUMMARY | 2025-01-16 09:17 | XMS_ITS | Clinical Summary ---
Author Organization [facility] Address [address] [place] [address] Care Team Providers Care Enrollment Advisor Name Role Phone Micah Vasques MD Primary Care Provider [phone] Allergies Active Allergy Reactions Criticality Noted Date [...] age to complete this topic Care Teams Enrollment Advisor Relationship Specialty Start Date End Date Micah Vasques MD [address] [place] [address], [facility] [address] [place] [address] PCP - General Band Shover 10/21/16
--- OUTSIDE RECORDS SUMMARY | 2025-01-16 09:18 | XMS_ITS | Clinical Summary ---
Author Organization [facility] Address [address] [place] [address] Care Team Providers Care Giver Name Role Phone Micah Vasques MD Primary Care Provider [phone] Surgical History Surgery Date Site/Laterality Comments KNEE SURGERY PROCEDURE:KNEE SURGERY TONSILLECTOMY ADENOIDECTOMY, BILATERAL MYRINGOTOMY AND TUBES PROCEDURE:TONSILECTOMY, ADENOIDECTOMY, BILATERAL MYRINGOTOMY AND TUBES WRIST SURGERY PROCEDURE:WRIST SURGERY JOINT REPLACEMENT Bilateral PROCEDURE:JOINT REPLACEMENT;COMMENT:knee EYE SURGERY PROCEDURE:EYE SURGERY Medical History Medical History Date Comments Hypertension DX:Hypertension Arthritis DX:Arthritis Diabetes mellitus ([facility]/HCC V24, CMS/HCC V28) DX:Diabetes mellitus ([facility]) Family History Medical History Relation Name Comments [...] Documents on File Type Date Recorded Patient Supply Chain Business Analyst Expl anation Health Care Decision (hx) 01/26/2016 AD LA DIRECTIVE Health Care Decision (hx) 01/26/2016 AD LA DIRECTIVE Care Teams Giver Relationship Specialty Start Date End Date Micah Vasques MD [address] [place] [id number] PCP - General Internal Medicine 07/15/21
== END 2025-01-16 09:38 | disposition home or self-care (01) ==
LOC: HO.HOS 08:45
PROVIDERS: PCP Internal Medicine; Visit Provider Orthopaedic Surgery
DX: M19.012 Primary osteoarthritis, left shoulder (principal)
CPT/HCPCS: 99214

== ENCOUNTER → 2025-01-16 08:44 | Outpatient (BNVA) | payer MEDICARE, SELFPAY | PROVIDERS: PCP Internal Medicine; Visit Provider Orthopaedic Surgery | DX: M25.512 Pain in left shoulder (principal); M19.012 Primary osteoarthritis, left shoulder | CPT/HCPCS: 99212 ==